=== PATIENT | male | born 1960 | race Caucasian/White ===

== ENCOUNTER → 2023-05-19 13:00 | Outpatient (REF) | payer MEDICARE, SELFPAY | LOC: RCS 13:00 | PROVIDERS: ATTENDING PHYSICIAN Internal Medicine; FAMILY PHYSICIAN Internal Medicine | DX: I25.119 Atherosclerotic heart disease of native coronary artery with unspecified angina pectoris (principal); I35.0 Nonrheumatic aortic (valve) stenosis | CPT/HCPCS: 93306; Q9950 ==

== ENCOUNTER → 2023-05-25 08:19 | Outpatient (REF) | payer MEDICARE, SELFPAY | LOC: DHCBC/DCA 08:19 | PROVIDERS: ATTENDING PHYSICIAN Internal Medicine; FAMILY PHYSICIAN Internal Medicine | DX: I35.0 Nonrheumatic aortic (valve) stenosis (principal); R94.31 Abnormal electrocardiogram [ECG] [EKG] | CPT/HCPCS: 78452; 93017; A9500; J2785 ==

== ENCOUNTER 2023-06-15 11:40 | Emergency (ER) | payer MEDICARE, SELFPAY ==
[2023-06-15 11:41] VITALS: BP 121/81
[2023-06-15 11:43] VITALS: BP 121/81; BMI 41.3
--- NOTE | 2023-06-15 11:52 | ED.GENMED ---
History of Present Illness
<Carol Rodas PA-C - Last Filed: 06/15/23 15:49>
General
Chief Complaint: Musculo-Skeletal Complaint
Source: patient
Exam Limitations: none
Time Seen by Provider: 06/15/23 11:50
Nursing documentation reviewed up to this point in time: agreed with
Travel History
Have you had any contact with someone who has COVID-19?: No
Do you have any symptoms of coronavirus? Fever > 100 degrees, chills, cough, shortness of breath, sore throat, loss of taste or smell, muscle aches, or headache?: No
History of Present Illness
History of Present Illness:
63-year-old male with past medical history of CVA, hypertension, hyperlipidemia presenting emergency department today with left ankle pain following a fall from a stool today. Patient states that he was stepping up on an 18 inch stool to try
recently for a higher cabinet when he slipped, twisted his ankle, and fell onto his right side. Patient states that at this time, he felt a crunch and immediately felt severe pain and cannot get up. They subsequently called EMS, patient was given
150 mcg en route and is still in a lot of pain. Patient also admits to lower left leg pain. He denies left knee pain, left hip pain. Patient denies hitting his head, patient denies any neck pain. Patient does take aspirin daily but is on no
anticoagulant medication. Patient did not lose consciousness. Patient follows with Dr. Moreno orthopedist within [place]. Patient also admits to paresthesias in his left foot.
Past History
<Carol Rodas PA-C - Last Filed: 06/15/23 15:49>
Past History
ED Past Medical History: CAD, HTN and Hypercholesterolemia
ED Past Surgical History: Cardiac (Cath no stents) and Orthopedic
Social History
Tobacco: Non-smoker
Alcohol: Occasional
Drug: None
Personal:
Living: with family
Employment: Employed
Family History
Family History: Early CAD
Review of Systems
<Carol Rodas PA-C - Last Filed: 06/15/23 15:49>
Review of Systems
All Other Systems: ROS reviewed and negative except as documented in HPI and ROS
Phy Exam
<Carol Rodas PA-C - Last Filed: 06/15/23 15:49>
Physical Exam
Physical Exam:
Vitals: Patient's vital signs are stable
General: Patient is well appearing
Skin: There is a large area of ecchymosis and swelling at the medial ankle. There is a small abrasion to the lateral left leg. No other rashes or lesions.
Head: Normocephalic, atraumatic. No tenderness palpation of skull, no palpable hematomas.
Neck: Patient seen spontaneously moving cervical spine. No tenderness palpation of the cervical spine.
Cardiac: Regular rate and rhythm, no murmurs
Pulm: Normal respiratory effort, breath sounds equal on both sides
Abdomen: No abdominal tenderness.
Musculoskeletal: Patient having severe pain with tenderness of the left ankle, tenderness of the lower left leg. Patient has no tenderness of the left thigh, left hip, right lower extremity, right upper extremity. No tenderness of the left upper
extremity. Patient is full range of motion of bilateral upper extremities. Patient is decree sensation the left foot. 2+ dorsalis pedis and posterior tibial pulses confirmed with Doppler.
Neuro: CN II-XII intact. AAOx3. GCS 15.
Course
<Carol Rodas PA-C - Last Filed: 06/15/23 15:49>
Orders/Labs/Results
Orders:
Orders
06/15/23 12:01
CR Ankle - Left Min 3 Views Urgent
Reason For Exam: ankle pain following fall
CR Leg Tibia/fibula Left 2 Vw Urgent
Comment:
Reason For Exam: left leg pain following fall
06/15/23 12:05
HYDROmorphone [Dilaudid] 0.5 mg IV NOW STA
06/15/23 13:11
HYDROmorphone [Dilaudid] 0.5 mg IV NOW STA
Ketorolac [Toradol] 15 mg IV NOW STA
06/15/23 14:26
Crutches-Treatment ONCE
Vital Signs
Initial and Last Documented VS:
Initial Vital Signs
BP
121/81
06/15/23 11:41
Last Documented Vital Signs
Temp Pulse Resp BP Pulse Ox
98 F 64 20 138/81 94
06/15/23 11:43 06/15/23 11:43 06/15/23 11:43 06/15/23 12:00 06/15/23 13:00
<Bahman Hsu MD - Last Filed: 06/15/23 16:11>
Orders/Labs/Results
Orders:
Orders
06/15/23 12:01
CR Ankle - Left Min 3 Views Urgent
Reason For Exam: ankle pain following fall
CR Leg Tibia/fibula Left 2 Vw Urgent
Comment:
Reason For Exam: left leg pain following fall
06/15/23 12:05
HYDROmorphone [Dilaudid] 0.5 mg IV NOW STA
06/15/23 13:11
HYDROmorphone [Dilaudid] 0.5 mg IV NOW STA
Ketorolac [Toradol] 15 mg IV NOW STA
06/15/23 14:26
Crutches-Treatment ONCE
Vital Signs
Initial and Last Documented VS:
Initial Vital Signs
BP
121/81
06/15/23 11:41
Last Documented Vital Signs
Temp Pulse Resp BP Pulse Ox
98 F 64 20 138/81 94
06/15/23 11:43 06/15/23 11:43 06/15/23 11:43 06/15/23 12:00 06/15/23 13:00
Procedures
<Carol Rodas PA-C - Last Filed: 06/15/23 15:49>
Splinting/Sling Placement
Left Leg:
Procedure completed by: Carol Rodas PA-C, Lizet Jackson PA-C
Pre-splint extermity exam: neurovascular intact
Type of splint: sugar-tong and posterior long leg
Splint material: fiberglass
Splint checked by provider?: Yes
Normal distal neurovascular exam?: Yes
<Carol Rodas PA-C - Last Filed: 06/15/23 15:49>
MDM/Problems Addressed
Differential Diagnosis Includes:
differentials include ankle fracture, ankle dislocation, fibular fracture, tibia fracture, hematoma, musculoskeletal sprain/strain
MDM/Problems Addressed:
Ankle pain, deformity
Chronic conditions affecting care: HTN and CAD
Acute Exacerbation and/or Progression of Chronic Illness: HTN and CAD
<Carol Rodas PA-C - Last Filed: 06/15/23 15:49>
*Radiology
Radiology exam reviewed: radiology read reviewed
*Pulse Oximetry
Patient hypoxic: no
*Critical Care Note
Total Time (30-74mins, 75-104mins- exclusive of procedures): Not Applicable
Data Reviewed
Review of Other/Old Records Reveals: Records (Reviewed ER to physician documentation from 09/08/2022) and Discharge Summary (reviewed discharge summary from 01/09/20)
Source: patient and records
<Carol Rodas PA-C - Last Filed: 06/15/23 15:49>
Patient Management
Escalation/DeEscalation of care consider admission/obs:
63-year-old male with past medical history of CVA, hypertension, hyperlipidemia presenting emergency department today with left ankle pain following a fall from a stool today. On exam, patient has a lot of tenderness palpation of the ankle and
proximal fibula. He has subtle swelling to the ankle. He denies any other injuries, he takes aspirin but no other blood thinners. He denies hitting his head or loss of consciousness. He denies any neck pain. His x-rays demonstrated a acute
nondisplaced comminuted oblique fracture of the mid fibular diaphysis along with an acute oriented fracture of the posterior malleolus with intra-articular extension. Spoke to orthopedist on-call who will see patient in the office in the coming
days and recommended splinting and discharge. Patient was placed in a posterior long leg splint, patient called orthopedic office while here in the ER got an appointment for tomorrow at 3:15. Patient medically stable for discharge.
ED Attending Note
<Carol Rodas PA-C - Last Filed: 06/15/23 15:49>
-
Portions of this chart may have been created with voice recognition software.� Occasional wrong word or��sound alike� substitutions may have occurred due to the inherent limitations of voice recognition software.
<Bahman Hsu MD - Last Filed: 06/15/23 16:11>
ED Attending Note
Patient seen and examined by attending physician: Yes
ED Attending Note:
Patient presents to ED secondary to persistent left ankle pain with swelling, after he slipped off stepping stool, shortly prior to arrival. Denies any other injuries. Denies loss of sensation. Denies weakness. Patient takes aspirin 81 mg daily.
Patient was given 150 mcg of fentanyl in route by the paramedics, with mild relief in symptoms.
Physical Exam
General: moderate painful distress, not acutely ill. afebrile.
Head: nc/at. eomi
Neuro: alert and oriented. no focal neurological deficits
Skin: no rash
Psychiatric: well kept. interactive and cooperative
Extremities: left medial malleolus swelling/ecchymosis/tenderness noted with mild deformity. DDP present. cap refill < 2 sec
X-ray report reviewed and discussed with Dr. Gutierrez, on-call orthopedic surgeon. Recommends outpatient follow-up after application of splint as well as recommendation to not weight-bear.
Stirrup as well as posterior splint applied, and patient provided with crutches prior to discharge. Patient remains neurovascularly intact at discharge.
Discharge Plan
Departure
Patient Disposition: Home (Routine Discharge)
Date of Disposition: 06/15/23
Time of Disposition: 14:27
Patient with high blood pressure during this ER visit?: Yes
Condition: Good
Discharge Problem:
Fibula fracture, Fracture of ankle
Instructions: How to Use Crutches, Ankle Fracture (DC), Fibula Fracture, BLOOD PRESSURE
Prescriptions:
New
oxycodone 5 mg capsule
5 mg PO QID PRN (Reason: Pain) Qty: 12 0RF
No Action
testosterone cypionate 200 MG/1 ML oil
200 mg INJ Q2W
rosuvastatin 20 MG tablet
20 mg PO DAILY
nitroglycerin 0.4 MG tablet, sublingual
0.4 mg sublingual [id number] PRN (Reason: chest pain) 0RF
tamsulosin 0.4 MG capsule
0.4 mg PO DAILY
metoprolol succinate 50 MG tablet extended release 24 hr
50 mg PO DAILY
esomeprazole magnesium [Nexium] 40 MG capsule,delayed release(DR/EC)
40 mg PO DAILY PRN (Reason: heartburn)
oxycodone 5 mg tablet
5 - 10 mg PO Q4H PRN (Reason: moderate-severe pain) Qty: 30 0RF
Rx Instructions:
1 tab for moderate pain, 2 if severe.
Dx total joint. Ongoing therapy.
celecoxib [Celebrex] 200 mg capsule
200 mg PO DAILY Qty: 30 0RF
Rx Instructions:
Take with food.
DO NOT take within 2 hours of Aspirin post-surgery.
dexamethasone 4 mg tablet
4 mg PO BID Qty: 7 0RF
Rx Instructions:
Start night of discharge and take twice a day until finished.
Take with food.
mupirocin 2 % ointment
1 applic intranasal BID Qty: 1 0RF
ondansetron HCl 4 mg tablet
4 mg PO Q6H PRN (Reason: nausea and vomiting) Qty: 20 0RF
zolpidem 5 mg Tablet
5 mg PO HS PRN (Reason: insomnia)
acetaminophen [Acetaminophen Extra Strength] 500 mg tablet
1,000 mg PO Q6H Qty: 60 0RF
Rx Instructions:
DO NOT exceed >4000 mg daily.
docusate sodium [Colace] 100 mg capsule
100 mg PO BID Qty: 30 0RF
sennosides [senna] 8.6 mg tablet
17.2 mg PO BID Qty: 30 0RF
aspirin 325 mg tablet
325 mg PO DAILY Qty: 30 0RF
Rx Instructions:
Take daily x4 weeks for blood clot prevention; then resume Aspirin 81 mg daily.
amlodipine 2.5 MG tablet
2.5 mg PO DAILY Qty: 0 0RF
Rx Instructions:
HOLD IF systolic blood pressure <130 while on Oxycodone.
losartan-hydrochlorothiazide 100-25 mg Tablet
1 tab PO DAILY Qty: 0 0RF
Rx Instructions:
HOLD IF systolic blood pressure <130 while on Oxycodone.
Referrals:
Sterling Gutierrez MD [Active] - Call in 1-3 days for appt
Devin Foy MD [Family Provider] -
Activity Restrictions/Additional Instructions:
Please return to the emergency department should you experience pallor in your leg, loss of sensation in your leg, fevers or chills, lightheadedness, dizziness, intractable pain, chest pain, shortness of breath, or other concerning signs or
symptoms.
Please call number for orthopedist's office as attached. They will see you in the office this week.
Please do not bear weight and please use your crutches when ambulating. Please keep your leg elevated.
Please alternate Tylenol and Motrin for pain control. For breakthrough pain, you can use oxycodone, you can take one tablet every 4 hours as needed for pain.
Interventions
Interventions:
*Risk Screen - Suicide Last Done: 06/15/23 11:43
*General Assessment Last Done: 06/15/23 11:43
*Neglect/Abuse Screening Last Done: 06/15/23 11:43
ED- Fall Risk Assessment Last Done: 06/15/23 11:47
*ED COVID-19 Vaccine History Last Done: 06/15/23 11:43
*Nursing Disposition Last Done: 06/15/23 15:01
ED-Musculoskeletal Assessment Last Done: 06/15/23 11:47
Discharge Date and Time
Discharge Date/Time: 06/15/23 15:01
Print Language: SLOVENIAN
[2023-06-15 12:00] VITALS: BP 138/81
[2023-06-15] MEDS: DILAUDID 0.5 MG IV ×2 (12:08→13:17)
[2023-06-15] MEDS: TORADOL 15 MG IV (13:17)
== END 2023-06-15 15:01 | disposition home or self-care (01) ==
LOC: EMR 11:40
PROVIDERS: EMERGENCY PHYSICIAN Emergency Medicine; FAMILY PHYSICIAN Internal Medicine
DX: S82.402A Unspecified fracture of shaft of left fibula, initial encounter for closed fracture (principal); S82.892A Other fracture of left lower leg, initial encounter for closed fracture; W01.0XXA Fall on same level from slipping, tripping and stumbling without subsequent striking against object, initial encounter; I10 Essential (primary) hypertension; E78.00 Pure hypercholesterolemia, unspecified; I25.10 Atherosclerotic heart disease of native coronary artery without angina pectoris; Z79.82 Long term (current) use of aspirin; Z82.49 Family history of ischemic heart disease and other diseases of the circulatory system; Z86.73 Personal history of transient ischemic attack (TIA), and cerebral infarction without residual deficits
CPT/HCPCS: 99283; 96374; 96375; 96376; 29505; 73590; 73610

== ENCOUNTER → 2023-06-18 08:22 | Outpatient (REF) | payer MEDICARE, SELFPAY ==
[2023-06-18 10:16] LABS: % Basophils 0.3 % (0-2); % Eosinophils 1.6 % (0-6); % Immature Granulocytes 0.3 % (0-0.5); % Lymphocytes 14.8 % (20.5-51.1); % Monocytes 9.9 % (1.7-9.3); % Neutrophils 73.1 % (42.2-75.2); Absolute Eosinophils 0.1 10^3/uL (0-0.7); Absolute Lymphocytes 0.9 10^3/uL (1.2-3.4); Absolute Monocytes 0.6 10^3/uL (0.1-0.6); Absolute Neutrophils 4.5 10^3/uL (1.4-6.5); Hematocrit 49.8 % (39.0-52.0); Hemoglobin 16.1 g/dL (13.0-18.0); Mean Corp Hgb Conc. 32.3 g/dL (33.0-37.0); Mean Corpuscular Hgb 27.6 pg (27.0-31.0); Mean Corpuscular Volume 85.4 fL (80.0-94.0); Mean Platelet Volume 10.1 fL (7.4-10.4); Nucleated Red Blood Cells % 0 % (-); Platelet Count 198 10^3/uL (130-400); Red Blood Cell Count 5.83 10^6/uL (4.70-6.10); Red Cell Dist. Width 14.6 % (11.5-14.5); White Blood Cell Count 6.1 10^3/uL (4.8-10.8)
[2023-06-18 12:08] LABS: Blood Urea Nitrogen 25 mg/dl (9-20); Calcium 9.4 mg/dl (8.4-10.2); Carbon Dioxide 21 mmol/L (22-30); Chloride 102 mmol/L (98-107); Glucose 82 mg/dl (70-99); Potassium 4.1 mmol/L (3.5-5.1); Sodium 137 mmol/L (135-145); eGFR > 60.00
== END ==
LOC: SDSPAT 08:22
PROVIDERS: ATTENDING PHYSICIAN Student in an Organized Health Care Education/Training Program; FAMILY PHYSICIAN Internal Medicine
DX: Z01.818 Encounter for other preprocedural examination (principal)
CPT/HCPCS: 36415; 80048; 85025

== ENCOUNTER 2023-06-23 06:28 | Day surgery (SDC) | payer MEDICARE, SELFPAY ==
[2023-06-18 08:42] VITALS: BMI 40.2
[2023-06-23] VITALS (8 sets, daily range): BP systolic 117–132; BP diastolic 67–78; BMI 40.2
[2023-06-23] MEDS: CELEBREX 200 MG PO (13:48)
[2023-06-23] MEDS: TYLENOL 1000 MG PO (13:48)
[2023-06-23] MEDS: NORMOSOL-R 1000 IV (13:49)
[2023-06-23] MEDS: ROXICODONE 10 MG PO (19:06)
== END 2023-06-23 19:35 | disposition home or self-care (01) ==
LOC: SDS 06:28
PROVIDERS: ATTENDING PHYSICIAN Student in an Organized Health Care Education/Training Program; FAMILY PHYSICIAN Internal Medicine
DX: S82.852A Displaced trimalleolar fracture of left lower leg, initial encounter for closed fracture (principal); S93.432A Sprain of tibiofibular ligament of left ankle, initial encounter; X50.1XXA Overexertion from prolonged static or awkward postures, initial encounter
CPT/HCPCS: 27822; 27829; 73610; 76000; C1713

== ENCOUNTER → 2024-01-18 08:43 | Outpatient (REF) | payer MEDICARE, SELFPAY ==
[2024-01-18 12:39] LABS: Intact PTH 74.2 pg/ml (13.6-85.8)
[2024-01-18 12:48] LABS: Albumin 4.5 g/dl (3.5-5.0); Calcium 9.9 mg/dl (8.4-10.2)
[2024-01-18 12:53] LABS: Prealbumin (Transthyretin) 31.9 mg/dl (17.6-36.0)
[2024-01-18 13:06] LABS: Vitamin D, 25-OH*** 22.7 ng/mL (30-80)
== END ==
LOC: HWRAD 08:43
PROVIDERS: ATTENDING PHYSICIAN Student in an Organized Health Care Education/Training Program; FAMILY PHYSICIAN Internal Medicine
DX: M25.572 Pain in left ankle and joints of left foot (principal); E55.9 Vitamin D deficiency, unspecified
CPT/HCPCS: 36415; 73700; 82040; 82306; 83970; 84134

== ENCOUNTER → 2024-03-30 08:39 | Outpatient (REF) | payer MEDICARE, SELFPAY ==
[2024-03-30 10:26] LABS: Albumin 4.6 g/dl (3.5-5.0); Calcium 9.3 mg/dl (8.4-10.2)
[2024-03-30 12:10] LABS: Vitamin D, 25-OH*** 28.3 ng/mL (30-80)
[2024-04-01 09:39] LABS: Intact PTH 55.8 pg/ml (13.6-85.8)
== END ==
LOC: REG 08:39
PROVIDERS: ATTENDING PHYSICIAN Student in an Organized Health Care Education/Training Program; FAMILY PHYSICIAN Internal Medicine
DX: E55.9 Vitamin D deficiency, unspecified (principal)
CPT/HCPCS: 36415; 82040; 82306; 83970; 84134

== ENCOUNTER → 2024-05-25 12:22 | Outpatient (REF) | payer MEDICARE, SELFPAY ==
[2024-05-25 14:30] LABS: Vitamin D, 25-OH*** 34.5 ng/mL (30-80)
== END ==
LOC: REG 12:22
PROVIDERS: ATTENDING PHYSICIAN Student in an Organized Health Care Education/Training Program; FAMILY PHYSICIAN Internal Medicine
DX: E55.9 Vitamin D deficiency, unspecified (principal)
CPT/HCPCS: 36415; 82306

== ENCOUNTER → 2024-06-09 07:27 | Outpatient (REF) | payer MEDICARE, SELFPAY ==
[2024-06-09 08:48] LABS: Hematocrit 48.2 % (39.0-52.0); Hemoglobin 16.5 g/dL (13.0-18.0); Mean Corp Hgb Conc. 34.2 g/dL (33.0-37.0); Mean Corpuscular Hgb 29.7 pg (27.0-31.0); Mean Corpuscular Volume 86.7 fL (80.0-94.0); Platelet Count 173 10^3/uL (130-400); Red Blood Cell Count 5.56 10^6/uL (4.70-6.10); Red Cell Dist. Width 14.5 % (11.5-14.5); White Blood Cell Count 4.9 10^3/uL (4.8-10.8)
[2024-06-09 09:22] LABS: Blood Urea Nitrogen 26 mg/dl (9-20); Calcium 9.7 mg/dl (8.4-10.2); Carbon Dioxide 26 mmol/L (22-30); Chloride 107 mmol/L (98-107); Glucose 100 mg/dl (70-99); Potassium 4.4 mmol/L (3.5-5.1); Sodium 140 mmol/L (135-145); eGFR > 60.00
== END ==
LOC: SDSPAT 07:27
PROVIDERS: ATTENDING PHYSICIAN Student in an Organized Health Care Education/Training Program; FAMILY PHYSICIAN Internal Medicine
DX: Z01.818 Encounter for other preprocedural examination (principal)
CPT/HCPCS: 36415; 80048; 85027

== ENCOUNTER 2024-06-13 06:15 | Day surgery (SDC) | payer MEDICARE, SELFPAY ==
[2024-06-09 13:57] VITALS: BMI 36.9
[2024-06-13] VITALS (16 sets, daily range): BP systolic 77–152; BP diastolic 53–82; BMI 36.9
[2024-06-13] MEDS: TYLENOL 1000 MG PO (14:30)
[2024-06-13] MEDS: CELEBREX 200 MG PO (14:30)
[2024-06-13] MEDS: NORMOSOL-R/PLASMALYTE-A 1000 IV (14:40)
--- NOTE | 2024-06-13 19:29 | PTCARENOTE ---
Documentation between 1822 to 1900 under wrong patient
[2024-06-13 22:28] LABS: Glucose - Point of Care 120 mg/dl (70-99)
[2024-06-13] MEDS: OFIRMEV 100 IV (22:36)
[2024-06-14] VITALS (9 sets, daily range): BP systolic 114–128; BP diastolic 54–67; PULSE 70; O2SAT 98; BMI 36.2
--- NOTE | 2024-06-14 00:29 | HPS.HSE ---
Family Physician
-
Family Physician: Devin Foy
Chief Complaint
-
Hypoxemia
History of Present Illness
Patient is a 64y M with PMH significant for ASCVD, hypertension and obesity who presents to for revision arthrodesis of the L ankle. Patient initially suffered trimalleolar fracture and underwent ORIF one year ago. Revision completed today
without issue. In the PACU, patient was noted to be diaphoretic with hypoxemia upon initial arrival. He was placed on supplemental oxygenation and has steadily improved. He has continued to require supplemental O2 however - with most recent SpO2
= 94% on 4 lpm of NC O2.
Patient seen and examined in the PACU. He is somewhat lethargic due to anesthesia effects. He does wake and answer questions / follow commands when stimulated.
Patient denies any chest pain or SOB. He has mild pain in the L ankle. No other complaints.
Patient does note that he has mild CAIO - uses no sleep device or PAP therapy, etc.
Prior h/o AL / CAD.
Medical History
Past Medical History
Past Medical History: Reports Other
Additional Past Medical History:
ASCVD
Paroxysmal SVT
Hypertension
Mild Aortic Stenosis
Obesity
CAIO
GERD
BPH
Chronic Back Pain
Past Surgical History: Reports Other
Additional Past Surgical History:
Left Ankle Revision Arthrodesis (06/13/24)
Left Ankle ORIF (06/2023)
Bilateral Shoulder Surgeries
Left TSA
Bilateral TKA
Umbilical Hernia Repair
Carpal Tunnel Surgery
Mohs Surgery
PTCA (no angio / stent)
Social History
Tobacco: Non-smoker
Alcohol: Occasional
Drug: None
Family History
Family History: Not pertinent
Allergies / Home Medications
Allergies reflects when Allergies were last updated in [employer].
Home Medications with original date entered in [employer]
Allergy/Medication List:
Allergies
Allergy/AdvReac Type Severity Reaction Status Date / Time
penicillin G Allergy Swelling Verified 06/13/24 14:17
of hands
and feet,
rash
Penicillins Allergy Swelling Verified 06/13/24 14:17
of hands
and feet,
rash
Home Medications
tamsulosin 0.4 mg capsule 0.4 mg PO DAILY 12/12/20
metoprolol succinate 50 mg tablet,extended release 24 hr 50 mg PO DAILY 06/17/21
amlodipine 2.5 mg tablet 2.5 mg PO DAILY #0 tabs 10/27/22
losartan 100 mg-hydrochlorothiazide 25 mg tablet 1 tab PO DAILY #0 tabs 10/27/22
aspirin 81 mg tablet,delayed release 81 mg PO DAILY 06/17/23
rosuvastatin 40 mg tablet 40 mg PO DAILY 06/17/23
tadalafil 5 mg tablet 5 mg PO DAILY 06/17/23
acetaminophen 325 mg tablet (Tylenol) 650 mg PO Q4H PRN pain 06/08/24
ibuprofen 200 mg tablet (Advil) 400 mg PO Q6H PRN pain 06/08/24
tramadol 50 mg tablet 50 mg PO BID PRN pain 06/08/24
Review of Systems
-
History Source: Patient
A 12 point ROS was completed and negative except as noted: Yes
Constitutional: Reports Fatigue; Denies Fever or Chills
Respiratory: Denies Cough or Trouble Breathing
Cardiac: Denies Chest Pain or Palpitations
Abdomen/GI: Denies Abdominal Pain, Nausea, Vomiting or Diarrhea
Musculoskeletal: Reports Joint Pain
Neurological: Denies Dizzy or Headache
Physical Exam
Vital Signs
Vital Signs
Temp Pulse Resp BP Pulse Ox
97.5 F 65 13 124/63 95
06/13/24 23:32 06/14/24 00:15 06/14/24 00:15 06/14/24 00:15 06/14/24 00:15
Physical Exam
General: Other (64y M in no acute distress. Sleepy from anesthesia - but wakes when stimulated and answers questions / follows commands.)
HEENT: Moist mucous membranes and Other (Thick neck.)
Respiratory: Clear; No Wheezes, Rales or Rhonchi
Cardiac: S1/S2, Regular Rhythm and Murmur (II/ ALEN)
GI: Non Tender, Non Distended, Normal Bowel Sounds and Other (Obese)
Musculoskeletal: No Clubbing, No Cyanosis and Other (Dressing in place over the L lower leg / foot. )
Neuro: Nonfocal/grossly intact
Impression/Plan
-
A/P: Patient is a 64y M with PMH significant for ASCVD, HTN and obesity who presented to for L ankle surgery and was noted to be diaphoretic and hypoxemic in PACU.
Acute Hypoxemic Respiratory Failure
- Admit for further evaluation and treatment.
- ? anesthesia effect + CAIO versus other etiology.
- EKG done in PACU without acute ischemic changes.
- Check troponin now and follow x 3 sets / to peak.
- Patient clinically improved from initial arrival in PACU.
- CXR done which was unremarkable.
- Continue O2 support and wean as able.
- Follow for continued improvement as anesthesia effect wanes.
- Encourage incentive spirometry use.
ASCVD
Benign Hypertension
Mild Aortic Stenosis
- Continue current CV med regimen.
- Follow trop / symptoms as noted above.
- Cardiology evaluation if any recurrent symptoms or abnormal troponin, etc.
s/p L Ankle Arthrodesis
- Post-op care per Ortho / Pod.
- Pain control, NWB LLE.
Obesity due to excess calories
Mild CAIO
- Affects all aspects of care.
- Patient currently uses no device / PAP / etc for CAIO.
- Follow for nocturnal hypoxemia, apneic episodes, etc.
- f/u as outpatient with Pulm / Sleep Medicine.
- Encourage healthy diet and increased activity with goal of weight loss.
BPH
- Continue tamsulosin. Hold tadalafil acutely pending CV evaluation.
- Bladder scan protocol.
DVT Prophylaxis: SCDs
Code Status: Full
[2024-06-14 00:54] LABS: Troponin I 0.018 ng/ml
[2024-06-14] MEDS: NORMOSOL-R/PLASMALYTE-A 1000 IV (00:54)
[2024-06-14] MEDS: ZOFRAN 4 MG IV (01:18)
[2024-06-14 07:33] LABS: Hematocrit 47.8 % (39.0-52.0); Hemoglobin 16.3 g/dL (13.0-18.0); Mean Corp Hgb Conc. 34.1 g/dL (33.0-37.0); Mean Corpuscular Hgb 29.5 pg (27.0-31.0); Mean Corpuscular Volume 86.4 fL (80.0-94.0); Platelet Count 175 10^3/uL (130-400); Red Blood Cell Count 5.53 10^6/uL (4.70-6.10); Red Cell Dist. Width 13.9 % (11.5-14.5)
[2024-06-14 07:45] LABS: Troponin I 0.017 ng/ml
[2024-06-14 07:49] LABS: Blood Urea Nitrogen 26 mg/dl (9-20); Calcium 9.3 mg/dl (8.4-10.2); Carbon Dioxide 21 mmol/L (22-30); Chloride 104 mmol/L (98-107); Estimated Creatinine Clearance > 125 ml/min; Glucose 162 mg/dl (70-99); Potassium 4.2 mmol/L (3.5-5.1); Sodium 138 mmol/L (135-145); eGFR > 60.00
[2024-06-14] MEDS: CRESTOR 40 MG PO (08:11)
[2024-06-14] MEDS: FLOMAX 0.4 MG PO (08:11)
[2024-06-14] MEDS: NORVASC 2.5 MG PO (08:11)
[2024-06-14] MEDS: ASPIR LOW (ENTERIC COATED) 81 MG PO (08:11)
[2024-06-14] MEDS: TOPROL XL 50 MG PO (08:12)
[2024-06-14] MEDS: ROXICODONE 5 MG PO (08:15)
--- NOTE | 2024-06-14 08:30 | W.PN.HOSP.TC ---
Today's Communication/Plan
-
Discharge planning today
Assessment / Plan
Assessment / Plan
Physical Exam
General: Other (64y M in no acute distress. Sleepy from anesthesia - but wakes when stimulated and answers questions / follows commands.)
HEENT: Moist mucous membranes and Other (Thick neck.)
Respiratory: Clear; No Wheezes, Rales or Rhonchi
Cardiac: S1/S2, Regular Rhythm and Murmur (II/ ALEN)
GI: Non Tender, Non Distended, Normal Bowel Sounds and Other (Obese)
Musculoskeletal: No Clubbing, No Cyanosis and Other (Dressing in place over the L lower leg / foot. )
Neuro: Nonfocal/grossly intact
A/P:
A/P: Patient is a 64y M with PMH significant for ASCVD, HTN and obesity who presented to for L ankle surgery and was noted to be diaphoretic and hypoxemic in PACU.
Acute Hypoxemic Respiratory Failure
- Oxygenating well today on room air
Prior to today:
- Admit for further evaluation and treatment.
- ? anesthesia effect + CAIO versus other etiology.
- EKG done in PACU without acute ischemic changes.
- Check troponin now and follow x 3 sets / to peak.
- Patient clinically improved from initial arrival in PACU.
- CXR done which was unremarkable.
- Continue O2 support and wean as able.
- Follow for continued improvement as anesthesia effect wanes.
- Encourage incentive spirometry use.
ASCVD
Benign Hypertension
Mild Aortic Stenosis
- Continue current CV med regimen.
- Follow trop / symptoms as noted above.
- Cardiology evaluation if any recurrent symptoms or abnormal troponin, etc.
s/p L Ankle Arthrodesis
- Post-op care per Ortho / Pod.
- Pain control, NWB LLE.
Obesity due to excess calories
Mild CAIO
- Affects all aspects of care.
- Patient currently uses no device / PAP / etc for CAIO.
- Follow for nocturnal hypoxemia, apneic episodes, etc.
- f/u as outpatient with Pulm / Sleep Medicine.
- Encourage healthy diet and increased activity with goal of weight loss.
BPH
- Continue tamsulosin. Hold tadalafil acutely pending CV evaluation.
- Bladder scan protocol.
DVT Prophylaxis: SCDs
Code Status: Full
Anticipated Discharge: Today
Subjective/Interval History
-
Date of Service: June 14, 2024
No new complaints. No chest pain or shortness of breath
Objective Data
-
Labs:
Laboratory Results
06/14/24
06:16
WBC 11.0 H
Hgb 16.3
Hct 47.8
Plt Count 175
Sodium 138
Potassium 4.2
Chloride 104
Carbon Dioxide 21 L
BUN 26 H
Creatinine 0.8
Glucose 162 H
Calcium 9.3
Vital Signs:
Vital Signs
Temp Pulse Resp BP Pulse Ox
98.4 F 85 16 127/64 95
06/14/24 08:10 06/14/24 08:11 06/14/24 08:10 06/14/24 08:11 06/14/24 08:10
I&O
06/13/24 06/14/24 06/15/24
06:59 06:59 06:59
Intake Total 200 / 200 780 / 780
Output Total 800 / 800
Balance 200 / 200 -20 / -20
--- NOTE | 2024-06-14 10:01 | CM ---
Addendum entered by Sharona Kowalski RN 06/15/24 08:33:
Plan: PT recommending home health; referral to [facility]; accepted.
Original Note:
Reviewed the chart notes and spoke with the patient at the bedside. The patient resides alone in a two story home with one step to enter. The patient reports no DME/SNF in the past, but did have [facility]. Name of agency unknown. The patient confirmed
his pharmacy of choice is [facility]. Patient's son will be staying with the patient for a few days and will transport the patient home at discharge. PT evaluation pending. CM continues to be available to patient/family and is monitoring medical plan
for needs at discharge.
Plan: Discharge plans will depend on the patient's progress.
--- NOTE | 2024-06-14 12:04 | W.DCSUMMARY ---
Discharge Summary
Discharge Data
Date of Admission: 06/13/24
Date of Discharge: 06/14/24
-
Pending Results: No
Hospital Course
Patient 64-year-old male with history of hypertension obesity paroxysmal SVT CAIO mild aortic stenosis GERD BPH chronic back pain came into the hospital for revision arthrodesis of the left ankle. He initially suffered trimalleolar fracture and
underwent ORIF 1 year ago and now revision completed today without significant problems. Patient noticed to be mildly hypoxic after PACU and he was placed on supplemental oxygen and improved without any significant measures. This was felt to be
related to his underlying sleep apnea and anesthesia. Chest x-ray no acute chest pathology. Patient is back on room air and no respiratory problems. He is alert oriented and back to his baseline. Podiatry cleared him for discharge. He has been
discharged in stable condition today.
Discharge Plan
-
Patient Disposition: Home (Routine Discharge)
Discharge Diagnosis/Procedures: Hypoxia. Status post revision of arthrodesis of left ankle.
Diet: Low Cholesterol
Additional Activity: As instructed by podiatry.
Blood Work: PCP to order CBC, BMP within 1 week
Referrals:
Bigg Cabrera DPM [Active] - in less than 1 week
Devin Foy MD [Family Provider] - in less than 1 week
Prescriptions:
Continued
tamsulosin 0.4 MG capsule
0.4 mg PO DAILY
metoprolol succinate 50 MG tablet extended release 24 hr
50 mg PO DAILY
amlodipine 2.5 MG tablet
2.5 mg PO DAILY Qty: 0 0RF
Rx Instructions:
HOLD IF systolic blood pressure <130 while on Oxycodone.
losartan-hydrochlorothiazide 100-25 mg Tablet
1 tab PO DAILY Qty: 0 0RF
Rx Instructions:
HOLD IF systolic blood pressure <130 while on Oxycodone.
aspirin 81 mg Tablet,Delayed Release (Dr/Ec)
81 mg PO DAILY
rosuvastatin 40 mg Tablet
40 mg PO DAILY
tadalafil 5 mg Tablet
5 mg PO DAILY
acetaminophen [Tylenol] 325 mg Tablet
650 mg PO Q4H PRN (Reason: pain)
tramadol 50 mg Tablet
50 mg PO BID PRN (Reason: pain)
ibuprofen [Advil] 200 mg Tablet
400 mg PO Q6H PRN (Reason: pain)
Discharge Orders:
Discharge Patient (As Directed); Ordered 06/14/24
Ordered By: Kushal Casarez
Discharge Date and Time
Discharge Date/Time: 06/14/24 16:48
Print Language: BRAZILIAN
--- NOTE | 2024-06-14 12:30 | W.PN.UPDATE ---
Update Note
Progress Note Update
S/p Left Arthroscopic ankle arthrodesis
-Ancef while in house
-NWB LLE, PT consult
-Pain control prn
-Dressings, C/D/I
-D/C when ready, follow up 2 weeks
== END 2024-06-14 16:48 | disposition home or self-care (01) ==
LOC: SDS 06:15
PROVIDERS: Hospitalist; ATTENDING PHYSICIAN Student in an Organized Health Care Education/Training Program; CONSULT PHYSICIAN Hospitalist; FAMILY PHYSICIAN Internal Medicine
DX: M19.172 Post-traumatic osteoarthritis, left ankle and foot (principal); S82.852S Displaced trimalleolar fracture of left lower leg, sequela; X58.XXXS Exposure to other specified factors, sequela; T84.84XA Pain due to internal orthopedic prosthetic devices, implants and grafts, initial encounter; Y79.2 Prosthetic and other implants, materials and accessory orthopedic devices associated with adverse incidents; G47.33 Obstructive sleep apnea (adult) (pediatric); I25.2 Old myocardial infarction; I10 Essential (primary) hypertension; I35.0 Nonrheumatic aortic (valve) stenosis; E66.09 Other obesity due to excess calories; Z96.653 Presence of artificial knee joint, bilateral; J96.01 Acute respiratory failure with hypoxia; N40.0 Benign prostatic hyperplasia without lower urinary tract symptoms; G89.29 Other chronic pain; K21.9 Gastro-esophageal reflux disease without esophagitis; T41.1X5A Adverse effect of intravenous anesthetics, initial encounter
CPT/HCPCS: 29899; 20680; C1713; 71045; 73600; 76000; 80048; 82962; 84484; 85027; 93005; 97162